=== PATIENT | female | born 1985 | race African-American/Black ===

== ENCOUNTER 2016-12-28 13:51 | Emergency (ER) | payer OTHER ==
[~2016-12-28] VITALS: Ht 165.1 cm; Wt 127.0 kg
[~2016-12-28 13:51] MED LIST: ACETAMINOPHEN-1 EAC1 PO; ALBUTEROL SUL5 MG/M1; DEXAMETHASONE 22 M1 PO; DIFLUCAN150 MG PO; FLAGYL500 MG PO; FLEXERIL PO; IBUPROFEN 800800 M1 PO; IBUPROFEN 800800 MG PO; MACROBID 100 M100 M1 PO; NOHOMEMEDICATIONS; NORCO 5-325 TA1 EACH PO; PENICILLIN VK500 M1 PO; PHENERGAN 25 MG25 M1 PO; TRINATE TABLET1 TAB PO; ZYRTEC10 M2
[2016-12-28] MEDS ORDERED: MUCINEX DM ER1 EACH PO (15:05)
== END 2016-12-28 15:23 | disposition home or self-care (01) ==
LOC: ER 13:51
DX: J06.9 Acute upper respiratory infection, unspecified (principal); J45.909 Unspecified asthma, uncomplicated; F17.210 Nicotine dependence, cigarettes, uncomplicated; Z88.8 Allergy status to other drugs, medicaments and biological substances

== ENCOUNTER 2017-04-05 10:26 | Emergency (ER) | payer OTHER ==
[~2017-04-05] VITALS: Ht 172.7 cm; Wt 172.4 kg
[~2017-04-05 10:26] MED LIST changes: +MUCINEX DM ER1 EACH PO
[2017-04-05] MEDS ORDERED: CELEXA20 MG PO (10:37)
[2017-04-05] MEDS ORDERED: BUPROPION HCL150 M1 PO (10:38)
[2017-04-05] MEDS ORDERED: NORCO 5-325 TA1 EACH PO (11:57)
[2017-04-05] MEDS ORDERED: NAPROSYN500 MG PO (11:57)
== END 2017-04-05 12:36 | disposition home or self-care (01) ==
LOC: ER 10:26
DX: S82.891A Other fracture of right lower leg, initial encounter for closed fracture (principal); J45.998 Other asthma; F17.210 Nicotine dependence, cigarettes, uncomplicated; Z88.8 Allergy status to other drugs, medicaments and biological substances; W01.0XXA Fall on same level from slipping, tripping and stumbling without subsequent striking against object, initial encounter; Y93.89 Activity, other specified; Y92.89 Other specified places as the place of occurrence of the external cause; Y99.8 Other external cause status

== ENCOUNTER 2017-08-25 02:21 | Emergency (ER) | payer OTHER ==
[~2017-08-25] VITALS: Ht 165.1 cm; Wt 127.0 kg
[~2017-08-25 02:21] MED LIST changes: +BUPROPION HCL150 M1 PO; +CELEXA20 MG PO; +NAPROSYN500 MG PO
[2017-08-25] MEDS ORDERED: ZYRTEC-D TABLE1 EAC1 PO (02:32)
[2017-08-25] MEDS ORDERED: PREDNISONE 20 M20 MG PO (02:32)
== END 2017-08-25 02:51 | disposition home or self-care (01) ==
LOC: ER 02:21
DX: J45.909 Unspecified asthma, uncomplicated (principal); F17.210 Nicotine dependence, cigarettes, uncomplicated; Z88.6 Allergy status to analgesic agent

== ENCOUNTER 2018-05-06 13:05 | Emergency (ER) | payer OTHER ==
[~2018-05-06] VITALS: Ht 165.1 cm; Wt 123.8 kg
[~2018-05-06 13:05] MED LIST changes: +PREDNISONE 20 M20 MG PO; +ZYRTEC-D TABLE1 EAC1 PO
[2018-05-06 13:32] LABS: URINE CLARITY CLEAR; URINE COLOR YELLOW
[2018-05-06 13:33] LABS: URINE BILIRUBIN NEGATIVE (Negative); URINE BLOOD TRACE (Negative); URINE GLUCOSE-RANDOM* NEGATIVE (Negative); URINE KETONES NEGATIVE (Negative); URINE LEUKOCYTES-REFLEX 2+ (Negative); URINE NITRITE-REFLEX NEGATIVE (Negative); URINE PROTEIN (DIPSTICK) NEGATIVE (Negative); URINE UROBILINOGEN 0.2 E.U./dl (0.2-1.0)
[2018-05-06 13:41] LABS: BACTERIA-REFLEX None Seen /HPF (None Seen); SQUAMOUS 4-10 Moderate /LPF (0-3); URINE RBC 3-10 Few /HPF (0-2)
[2018-05-06 13:42] LABS: CRYSTALS None Seen /LPF (None Seen); HYALINE CASTS 0-3 Few /LPF (None Seen); URINE WBC-REFLEX 6-15 Few /HPF (0-5)
[2018-05-06] MEDS ORDERED: PREDNISONE 20 M20 MG PO (14:31)
[2018-05-06] MEDS ORDERED: FLAGYL500 M1 PO (14:31)
[2018-05-06 14:44] VITALS: BP 126/79
== END 2018-05-06 14:45 | disposition home or self-care (01) ==
LOC: ER 13:05
PROVIDERS: Physician Assistant
DX: Z20.2 Contact with and (suspected) exposure to infections with a predominantly sexual mode of transmission (principal); N76.0 Acute vaginitis; J45.909 Unspecified asthma, uncomplicated; F17.210 Nicotine dependence, cigarettes, uncomplicated; Z88.8 Allergy status to other drugs, medicaments and biological substances

== ENCOUNTER 2018-08-06 20:57 | Emergency (ER) | payer OTHER ==
[~2018-08-06] VITALS: Ht 165.1 cm; Wt 97.5 kg
[~2018-08-06 20:57] MED LIST changes: +FLAGYL500 M1 PO
[2018-08-06] MEDS ORDERED: ZYRTEC10 M5 PO (21:14)
[2018-08-06] MEDS ORDERED: SINGULAIR 10 MG10 M1 PO (21:29)
[2018-08-06] MEDS ORDERED: MEDROLDOSEPACK PO (21:29)
[2018-08-06 21:51] VITALS: BP 144/95
== END 2018-08-06 22:00 | disposition home or self-care (01) ==
LOC: ER 20:57
DX: H10.13 Acute atopic conjunctivitis, bilateral (principal); J30.9 Allergic rhinitis, unspecified; F17.210 Nicotine dependence, cigarettes, uncomplicated; Z88.8 Allergy status to other drugs, medicaments and biological substances

== ENCOUNTER 2019-03-17 15:29 | Emergency (ER) | payer OTHER ==
[~2019-03-17] VITALS: Ht 165.1 cm; Wt 81.7 kg
[~2019-03-17 15:29] MED LIST changes: +MEDROLDOSEPACK PO; +SINGULAIR 10 MG10 M1 PO; +ZYRTEC10 M5 PO
[2019-03-17] MEDS ORDERED: NAPROSYN500 MG PO (17:14)
[2019-03-17] MEDS ORDERED: NORFLEX100 MG PO (17:14)
[2019-03-17 17:31] VITALS: BP 127/84
== END 2019-03-17 17:32 | disposition home or self-care (01) ==
LOC: ER 15:29
DX: S39.012A Strain of muscle, fascia and tendon of lower back, initial encounter (principal); S29.012A Strain of muscle and tendon of back wall of thorax, initial encounter; S83.8X1A Sprain of other specified parts of right knee, initial encounter; J45.909 Unspecified asthma, uncomplicated; F17.210 Nicotine dependence, cigarettes, uncomplicated; Z88.8 Allergy status to other drugs, medicaments and biological substances; W22.8XXA Striking against or struck by other objects, initial encounter; Y92.89 Other specified places as the place of occurrence of the external cause; Y93.89 Activity, other specified; Y99.0 Civilian activity done for income or pay

== ENCOUNTER 2019-06-20 12:48 | Emergency (ER) | payer OTHER ==
[~2019-06-20] VITALS: Ht 170.2 cm; Wt 127.0 kg
[~2019-06-20 12:48] MED LIST changes: +NORFLEX100 MG PO
[2019-06-20] MEDS ORDERED: PREDNISONE 20 M20 MG PO (13:22)
[2019-06-20] MEDS ORDERED: TRIAMCINOLONE A80 G2 TOP (13:22)
[2019-06-20] MEDS ORDERED: PATANOL5 ML OPHTHALMIC (13:22)
[2019-06-20 13:43] VITALS: BP 146/78
== END 2019-06-20 13:43 | disposition home or self-care (01) ==
LOC: ER 12:48
DX: H10.13 Acute atopic conjunctivitis, bilateral (principal); L30.9 Dermatitis, unspecified; J45.909 Unspecified asthma, uncomplicated; F17.210 Nicotine dependence, cigarettes, uncomplicated; Z79.899 Other long term (current) drug therapy; Z88.8 Allergy status to other drugs, medicaments and biological substances

== ENCOUNTER 2020-07-23 16:13 | Emergency (ER) | payer OTHER ==
[~2020-07-23] VITALS: Ht 165.1 cm; Wt 125.2 kg
[~2020-07-23 16:13] MED LIST changes: +PATANOL5 ML OPHTHALMIC; +TRIAMCINOLONE A80 G2 TOP
[2020-07-23] MEDS ORDERED: SINGULAIR 10 MG10 M1 PO (16:40)
[2020-07-23 18:13] VITALS: BP 114/90
== END 2020-07-23 18:13 | disposition home or self-care (01) ==
LOC: ER 16:13
DX: J30.2 Other seasonal allergic rhinitis (principal); F17.210 Nicotine dependence, cigarettes, uncomplicated; Z88.6 Allergy status to analgesic agent; Z79.899 Other long term (current) drug therapy; Z98.51 Tubal ligation status